=== PATIENT | female | born 1955 | race Caucasian/White ===

== ENCOUNTER → 2016-11-01 | Outpatient (CLI) | payer BC ==
--- NOTE | ~2016-11-01 | CT16 ---
[facility] A Service of [facility] RADIOLOGY TEXT RESULTS PATIENT: GAYATRI CABELLO LOCATION: [facility] : 53 UNIT #: [id number] AGE: [address]: Hua Rodriguez MD SEX: F ORDER DR: [id number] [facility] [address] [place], [place] [address] [id number] MR#: [id number] [facility] #: [id number] NAME: GAYATRI CABELLO : 1955 SEX: F STUDY DATE/TIME: 11/01/2016 15:05 UNIT: [facility] ROOM: STUDY DESCRIPTION: CT Angio Chest for PE Attending Physician: Hua Rodriguez M.D. Referring Physician: Hua Rodriugez M.D. Ordering Physician: Hua Rodriguez M.D. Primary Care Physician: Sam Butler M.D. MEDICAL IMAGING REPORT This report is preliminary unless electronic signature is present EXAM CT chest, PE protocol HISTORY Chest pain under ribs radiating to back since July 2016. Minimal improvement. TECHNIQUE Axial images performed through the chest following IV contrast. 3-D coronal and sagittal reconstructed images reviewed at a workstation. This CT exam was performed with one or more of the following radiation dose reduction techniques: automatic exposure control, adjustment of mA and/or kV according to patient size, and iterative reconstruction. FINDINGS The pulmonary parenchyma unremarkable, except for a densely calcified granuloma lateral aspect right middle lobe. No acute airspace disease. Trachea and bronchi unremarkable. Normal enhancement of the pulmonary arteries. No evidence of embolus. Heart size within normal limits. Aorta free of dissection or aneurysm. No significant adenopathy. Upper abdomen remarkable for extensive cholelithiasis. No CT findings to suggest acute cholecystitis. Osseous structures and thoracic inlet unremarkable. IMPRESSION 1. No acute intrathoracic abnormality identified. In particular, no evidence of pulmonary embolus. 2. Right middle lobe granuloma. 3. Extensive cholelithiasis with too numerous to count stones within the [facility] A Service of [facility] RADIOLOGY TEXT RESULTS PATIENT: GAYATRI CABELLO LOCATION: [facility] : 53 UNIT #: [id number] AGE: [address]: Hua Rodriguez MD SEX: F ORDER DR: gallbladder. No CT evidence of acute cholecystitis. However, given the extensive stone burden, 1 would question whether this could be a contributing factor to the patient's clinical symptoms. Dictated by... Annemarie Gill M.D. THIS IS AN ELECTRONICALLY VERIFIED REPORT Annemarie Gill M.D. at 11/01/2016 10:39 PM Eran TD: 11/01/2016 21:24 JOB #: [id number] MEDICAL IMAGING REPORT Page 1 of 1 COPY
[2016-11-01 15:25] LABS: POC - CREATININE 0.92 mg/dL (0.44-1.03); POC - GFR >60.0 mL/min (>60)
== END | disposition home or self-care (01) ==
LOC: CCAT 13:42
PROVIDERS: Internal Medicine
DX: R07.9 Chest pain, unspecified (principal); R05 Cough; J84.10 Pulmonary fibrosis, unspecified; K80.20 Calculus of gallbladder without cholecystitis without obstruction
CPT/HCPCS: 71275; 82565; Q9967